=== PATIENT | female | born 1950 | race Caucasian/White ===

== ENCOUNTER → 2017-07-19 | Outpatient (CLI) | payer OTHER ==
[~2017-07-19] MED LIST: BUPIVACAINE MPF 0.25% 10 ML VIAL. ONE; LIDOCAINE 1% PF 30 ML VIAL. ONE; methylPREDNISolone ACETATE 40 MG/ML VIAL. ONE
== END | disposition home or self-care (01) ==
LOC: SURG 12:01
PROVIDERS: ATTEND Anesthesiology Pain Medicine
DX: M53.3 Sacrococcygeal disorders, not elsewhere classified (principal); M19.91 Primary osteoarthritis, unspecified site; Z72.0 Tobacco use
CPT/HCPCS: 20552; J1030; J2001; J3490

== ENCOUNTER → 2017-09-06 | Outpatient (CLI) | payer OTHER ==
[~2017-09-06] MED LIST changes: +IV NORMAL SALINE 500ML 500 ML ONE; +LIDOCAINE 2% PF Vial for OR 5 ML VIAL. ONE; +MIDAZOLAM HCL PF 2 MG/2 ML VIAL. ONE; +PROPOFOL 0 ML IV ONE; +fentaNYL PF 250 MCG/5 ML VIAL ONE
== END | disposition home or self-care (01) ==
LOC: SURG 11:41
PROVIDERS: ATTEND Anesthesiology Pain Medicine
DX: M47.816 Spondylosis without myelopathy or radiculopathy, lumbar region (principal); M19.91 Primary osteoarthritis, unspecified site; Z87.01 Personal history of pneumonia (recurrent); Z72.0 Tobacco use; Z96.643 Presence of artificial hip joint, bilateral
CPT/HCPCS: 64635; 64636; J1030; J2001; J2250; J3010; J3490; J7040; J2704

== ENCOUNTER → 2017-09-20 | Outpatient (CLI) | payer OTHER ==
[~2017-09-20] MED LIST changes: +IV NORMAL SALINE 1,000ML 1,000 ML ONE; -IV NORMAL SALINE 500ML 500 ML ONE; -LIDOCAINE 2% PF Vial for OR 5 ML VIAL. ONE; -PROPOFOL 0 ML IV ONE; -fentaNYL PF 250 MCG/5 ML VIAL ONE
== END | disposition home or self-care (01) ==
LOC: SURG 08:06
PROVIDERS: ATTEND Anesthesiology Pain Medicine
DX: M46.96 Unspecified inflammatory spondylopathy, lumbar region (principal); M47.816 Spondylosis without myelopathy or radiculopathy, lumbar region; F17.210 Nicotine dependence, cigarettes, uncomplicated; M19.90 Unspecified osteoarthritis, unspecified site; J32.9 Chronic sinusitis, unspecified; J30.2 Other seasonal allergic rhinitis
CPT/HCPCS: 64635; 64636; J1030; J2001; J2250; J3010; J3490; J7030

== ENCOUNTER → 2018-01-17 | Outpatient (CLI) | payer OTHER, MEDICARE | END | disposition home or self-care (01) | LOC: SURG 10:00 | PROVIDERS: ATTEND Anesthesiology Pain Medicine | DX: M47.816 Spondylosis without myelopathy or radiculopathy, lumbar region (principal); F11.90 Opioid use, unspecified, uncomplicated; G89.4 Chronic pain syndrome | CPT/HCPCS: 99214 ==

== ENCOUNTER → 2018-02-13 | Outpatient (CLI) | payer OTHER, MEDICARE | END | disposition home or self-care (01) | LOC: SURG 11:02 | PROVIDERS: ATTEND Anesthesiology Pain Medicine | DX: M54.16 Radiculopathy, lumbar region (principal); M47.816 Spondylosis without myelopathy or radiculopathy, lumbar region; K59.03 Drug induced constipation; F11.90 Opioid use, unspecified, uncomplicated | CPT/HCPCS: 99214 ==

== ENCOUNTER → 2018-03-20 | Outpatient (CLI) | payer OTHER, MEDICARE ==
[~2018-03-20] MED LIST changes: +0.9 % SODIUM CHLORIDE 10 ML VIAL ONE; -BUPIVACAINE MPF 0.25% 10 ML VIAL. ONE; +IOHEXOL 300 MG/ML 50 ML VIAL. ONE; -IV NORMAL SALINE 1,000ML 1,000 ML ONE; -MIDAZOLAM HCL PF 2 MG/2 ML VIAL. ONE; -methylPREDNISolone ACETATE 40 MG/ML VIAL. ONE; +methylPREDNISolone ACETATE 80 MG/ML VIAL. ONE
== END ==
LOC: SURG 10:47
PROVIDERS: ATTEND Anesthesiology Pain Medicine
DX: M54.16 Radiculopathy, lumbar region (principal); Z87.39 Personal history of other diseases of the musculoskeletal system and connective tissue; Z87.01 Personal history of pneumonia (recurrent); Z72.0 Tobacco use; Z98.890 Other specified postprocedural states
CPT/HCPCS: 62323; J1040; J2001; Q9967

== ENCOUNTER → 2018-07-04 | Outpatient (CLI) | payer OTHER | END | disposition home or self-care (01) | LOC: SURG 12:20 | PROVIDERS: ATTEND Anesthesiology Pain Medicine | DX: M54.5 Low back pain (principal); J32.9 Chronic sinusitis, unspecified; Z87.891 Personal history of nicotine dependence; Z96.643 Presence of artificial hip joint, bilateral; Z87.39 Personal history of other diseases of the musculoskeletal system and connective tissue | CPT/HCPCS: 99214 ==

== ENCOUNTER → 2018-09-04 | Outpatient (CLI) | payer OTHER | END | disposition home or self-care (01) | LOC: SURG 12:03 | PROVIDERS: ATTEND Anesthesiology Pain Medicine | DX: M47.26 Other spondylosis with radiculopathy, lumbar region (principal); G89.4 Chronic pain syndrome; F11.90 Opioid use, unspecified, uncomplicated; M85.80 Other specified disorders of bone density and structure, unspecified site; J32.9 Chronic sinusitis, unspecified; M19.90 Unspecified osteoarthritis, unspecified site; F17.200 Nicotine dependence, unspecified, uncomplicated; Z79.899 Other long term (current) drug therapy | CPT/HCPCS: 99214 ==

== ENCOUNTER → 2018-10-23 | Outpatient (CLI) | payer OTHER | END | disposition home or self-care (01) | LOC: SURG 10:29 | PROVIDERS: ATTEND Anesthesiology Pain Medicine | DX: M47.26 Other spondylosis with radiculopathy, lumbar region (principal); M19.90 Unspecified osteoarthritis, unspecified site; G89.4 Chronic pain syndrome; F11.90 Opioid use, unspecified, uncomplicated | CPT/HCPCS: 99214 ==

== ENCOUNTER → 2019-01-30 | Outpatient (CLI) | payer MEDICARE, OTHER ==
[~2019-01-30] MED LIST changes: -0.9 % SODIUM CHLORIDE 10 ML VIAL ONE; +BUPIVACAINE MPF 0.25% 10 ML VIAL. ONE
== END | disposition home or self-care (01) ==
LOC: SURG 09:22
PROVIDERS: ATTEND Anesthesiology Pain Medicine
DX: M46.1 Sacroiliitis, not elsewhere classified (principal); J44.9 Chronic obstructive pulmonary disease, unspecified; G47.30 Sleep apnea, unspecified; M19.90 Unspecified osteoarthritis, unspecified site; Z87.01 Personal history of pneumonia (recurrent); M47.26 Other spondylosis with radiculopathy, lumbar region; Z98.890 Other specified postprocedural states; Z79.899 Other long term (current) drug therapy; F17.210 Nicotine dependence, cigarettes, uncomplicated
CPT/HCPCS: G0260; J1040; J2001; J3490; Q9967; 27096

== ENCOUNTER → 2019-02-12 | Outpatient (CLI) | payer MEDICARE | END | disposition home or self-care (01) | LOC: SURG 11:59 | PROVIDERS: ATTEND Anesthesiology Pain Medicine | DX: M46.1 Sacroiliitis, not elsewhere classified (principal); J44.9 Chronic obstructive pulmonary disease, unspecified; G47.30 Sleep apnea, unspecified; Z87.01 Personal history of pneumonia (recurrent); M19.90 Unspecified osteoarthritis, unspecified site; Z98.890 Other specified postprocedural states; Z79.899 Other long term (current) drug therapy; F17.210 Nicotine dependence, cigarettes, uncomplicated | CPT/HCPCS: G0260; J1040; J2001; J3490; Q9967; 27096 ==

== ENCOUNTER → 2019-03-06 | Outpatient (CLI) | payer MEDICARE | END | disposition home or self-care (01) | LOC: SURG 09:49 | PROVIDERS: ATTEND Anesthesiology Pain Medicine | DX: M43.06 Spondylolysis, lumbar region (principal); M53.3 Sacrococcygeal disorders, not elsewhere classified; G89.4 Chronic pain syndrome; F11.90 Opioid use, unspecified, uncomplicated; F17.200 Nicotine dependence, unspecified, uncomplicated; Z79.899 Other long term (current) drug therapy | CPT/HCPCS: 99214 ==

== ENCOUNTER → 2019-04-03 | Outpatient (CLI) | payer MEDICARE | END | disposition home or self-care (01) | LOC: SURG 11:13 | PROVIDERS: ATTEND Anesthesiology Pain Medicine | DX: M43.06 Spondylolysis, lumbar region (principal); M53.3 Sacrococcygeal disorders, not elsewhere classified; M47.816 Spondylosis without myelopathy or radiculopathy, lumbar region; M19.90 Unspecified osteoarthritis, unspecified site; F11.90 Opioid use, unspecified, uncomplicated; F17.200 Nicotine dependence, unspecified, uncomplicated; G89.4 Chronic pain syndrome; Z79.899 Other long term (current) drug therapy | CPT/HCPCS: 99214 ==

== ENCOUNTER → 2019-05-01 | Outpatient (CLI) | payer MEDICARE ==
[~2019-05-01] MED LIST changes: +0.9 % SODIUM CHLORIDE 10 ML VIAL ONE; -BUPIVACAINE MPF 0.25% 10 ML VIAL. ONE
== END ==
LOC: SURG 11:36
PROVIDERS: ATTEND Anesthesiology Pain Medicine
DX: M54.16 Radiculopathy, lumbar region (principal); Z87.39 Personal history of other diseases of the musculoskeletal system and connective tissue; Z87.891 Personal history of nicotine dependence
CPT/HCPCS: 62323; J1040; J2001; Q9967

== ENCOUNTER → 2019-09-03 | Outpatient (CLI) | payer MEDICARE ==
[~2019-09-03] MED LIST changes: -0.9 % SODIUM CHLORIDE 10 ML VIAL ONE; +ASPI-621 PO; +FOLI0.8T33 PO; +HYDR-2769 PO; -IOHEXOL 300 MG/ML 50 ML VIAL. ONE; +LIDO700A21 TP; -LIDOCAINE 1% PF 30 ML VIAL. ONE; +METH2.5T PO; +POLY17PO5 PO; -methylPREDNISolone ACETATE 80 MG/ML VIAL. ONE
[2019-09-03 12:44] VITALS: BP 119/73
== END | disposition home or self-care (01) ==
LOC: SURG 12:00
PROVIDERS: ATTEND Anesthesiology Pain Medicine
DX: M47.816 Spondylosis without myelopathy or radiculopathy, lumbar region (principal); M79.606 Pain in leg, unspecified; G89.4 Chronic pain syndrome; M19.90 Unspecified osteoarthritis, unspecified site; F17.200 Nicotine dependence, unspecified, uncomplicated; Z79.891 Long term (current) use of opiate analgesic
CPT/HCPCS: 99214

== ENCOUNTER → 2019-10-07 | Outpatient (CLI) | payer MEDICARE ==
[~2019-10-07] MED LIST changes: +MULT-245 PO
[2019-10-07 14:57] VITALS: BP 123/83
== END | disposition home or self-care (01) ==
LOC: SURG 14:33
PROVIDERS: ATTEND Anesthesiology Pain Medicine
DX: M47.816 Spondylosis without myelopathy or radiculopathy, lumbar region (principal); M54.9 Dorsalgia, unspecified; M54.5 Low back pain; M79.606 Pain in leg, unspecified; G89.4 Chronic pain syndrome; M19.90 Unspecified osteoarthritis, unspecified site; Z79.891 Long term (current) use of opiate analgesic
CPT/HCPCS: 99214

== ENCOUNTER → 2019-10-14 | Day surgery (SDC) | payer MEDICARE ==
[~2019-10-14] MED LIST changes: +BUPIVACAINE MPF 0.25% 10 ML VIAL. ONE; +DEXAMETHASONE SOD PHOS 4 MG/ML VIAL ONE; +EPINEPHrine SYRINGE 1 MG/10 ML SYRINGE ONE; +FLUMAZENIL 0.5 MG/5 ML VIAL. IV ONE; +GLUCAGON,HUMAN RECOMBINANT 1 MG KIT. ONE; +IV RINGERS SOLUTION,LACTATED 1,000 ML IV SCH; +LIDOCAINE 1% PF 30 ML VIAL. ONE; +MIDAZOLAM HCL PF 2 MG/2 ML VIAL. IV ONE; +MIDAZOLAM HCL PF 2 MG/2 ML VIAL. ONE; +NALOXONE 0.4 MG/ML VIAL. ONE; +diphenhydrAMINE 50 MG/ML VIAL ONE
[2019-10-14 10:04] VITALS: BP 105/73
== END ==
LOC: SURG 07:37
PROVIDERS: ATTEND Anesthesiology Pain Medicine
DX: M47.816 Spondylosis without myelopathy or radiculopathy, lumbar region (principal)
CPT/HCPCS: 64635; 64636; J1100; J2001; J2250; J3010; J3490; J7120; 99153

== ENCOUNTER → 2020-05-11 | Outpatient (CLI) | payer MEDICARE ==
[~2020-05-11] MED LIST changes: -DEXAMETHASONE SOD PHOS 4 MG/ML VIAL ONE; -EPINEPHrine SYRINGE 1 MG/10 ML SYRINGE ONE; -FLUMAZENIL 0.5 MG/5 ML VIAL. IV ONE; -GLUCAGON,HUMAN RECOMBINANT 1 MG KIT. ONE; -IV RINGERS SOLUTION,LACTATED 1,000 ML IV SCH; -MIDAZOLAM HCL PF 2 MG/2 ML VIAL. IV ONE; -MIDAZOLAM HCL PF 2 MG/2 ML VIAL. ONE; -NALOXONE 0.4 MG/ML VIAL. ONE; -diphenhydrAMINE 50 MG/ML VIAL ONE; +methylPREDNISolone ACETATE 40 MG/ML VIAL. ONE
[2020-05-11 13:16] VITALS: BP 133/71
== END | disposition home or self-care (01) ==
LOC: SURG 11:33
PROVIDERS: ATTEND Anesthesiology
DX: M46.1 Sacroiliitis, not elsewhere classified (principal); M47.816 Spondylosis without myelopathy or radiculopathy, lumbar region; J44.9 Chronic obstructive pulmonary disease, unspecified; M19.90 Unspecified osteoarthritis, unspecified site; F17.210 Nicotine dependence, cigarettes, uncomplicated; Z79.899 Other long term (current) drug therapy; Z87.01 Personal history of pneumonia (recurrent); Z98.890 Other specified postprocedural states
CPT/HCPCS: G0260; J1030; J2001; J3490; 27096; 77002

== ENCOUNTER → 2020-06-29 | Outpatient (CLI) | payer MEDICARE ==
[~2020-06-29] MED LIST changes: +0.9 % SODIUM CHLORIDE 10 ML VIAL. ONE; +SENN8.8S5 PO; -methylPREDNISolone ACETATE 40 MG/ML VIAL. ONE
[2020-06-29 12:30] VITALS: BP 138/75
== END | disposition home or self-care (01) ==
LOC: SURG 11:06
PROVIDERS: ATTEND Anesthesiology
DX: M47.896 Other spondylosis, lumbar region (principal); J44.9 Chronic obstructive pulmonary disease, unspecified; Z87.891 Personal history of nicotine dependence; Z79.899 Other long term (current) drug therapy
CPT/HCPCS: 64493; 64494; 64495; J2001; J3490

== ENCOUNTER → 2020-07-06 | Outpatient (CLI) | payer MEDICARE ==
[~2020-07-06] MED LIST changes: -0.9 % SODIUM CHLORIDE 10 ML VIAL. ONE; -BUPIVACAINE MPF 0.25% 10 ML VIAL. ONE; -LIDOCAINE 1% PF 30 ML VIAL. ONE
[2020-07-06 11:21] VITALS: BP 128/65
== END ==
LOC: SURG 11:02
PROVIDERS: ATTEND Anesthesiology
DX: M47.816 Spondylosis without myelopathy or radiculopathy, lumbar region (principal); G89.4 Chronic pain syndrome; F11.20 Opioid dependence, uncomplicated
CPT/HCPCS: 99214; G0463

== ENCOUNTER → 2020-07-27 | Outpatient (CLI) | payer MEDICARE ==
[~2020-07-27] MED LIST changes: +BUPIVACAINE MPF 0.25% 10 ML VIAL. ONE; +LIDOCAINE 1% PF 30 ML VIAL. ONE
[2020-07-27 13:29] VITALS: BP 126/90
== END | disposition home or self-care (01) ==
LOC: SURG 11:55
PROVIDERS: ATTEND Anesthesiology
DX: M47.816 Spondylosis without myelopathy or radiculopathy, lumbar region (principal); J44.9 Chronic obstructive pulmonary disease, unspecified; Z87.891 Personal history of nicotine dependence; Z79.899 Other long term (current) drug therapy
CPT/HCPCS: 64493; 64494; J2001; J3490

== ENCOUNTER → 2020-08-17 | Outpatient (CLI) | payer MEDICARE ==
[~2020-08-17] MED LIST changes: -BUPIVACAINE MPF 0.25% 10 ML VIAL. ONE; -LIDOCAINE 1% PF 30 ML VIAL. ONE
[2020-08-17 12:46] VITALS: BP 130/76
== END ==
LOC: SURG 12:35
PROVIDERS: ATTEND Anesthesiology
DX: M54.5 Low back pain (principal); M47.816 Spondylosis without myelopathy or radiculopathy, lumbar region; M19.90 Unspecified osteoarthritis, unspecified site; F17.210 Nicotine dependence, cigarettes, uncomplicated; F11.20 Opioid dependence, uncomplicated; Z87.01 Personal history of pneumonia (recurrent); G89.4 Chronic pain syndrome; Z79.899 Other long term (current) drug therapy; Z79.82 Long term (current) use of aspirin
CPT/HCPCS: 99214; G0463

== ENCOUNTER → 2020-09-09 | Outpatient (CLI) | payer MEDICARE ==
[2020-08-17 12:46] VITALS: BP 130/76
== END ==
LOC: LAB 14:00
PROVIDERS: ATTEND Nurse Anesthetist, Certified Registered
DX: Z01.812 Encounter for preprocedural laboratory examination (principal); Z20.828 Contact with and (suspected) exposure to other viral communicable diseases
CPT/HCPCS: C9803; U0003

== ENCOUNTER → 2020-09-14 | Day surgery (SDC) | payer MEDICARE ==
[~2020-09-14] MED LIST changes: +BUPIVACAINE MPF 0.25% 10 ML VIAL. ONE; +BUPIVACAINE MPF 0.25% 30 ML VIAL. IJ ONE; +DEXAMETHASONE SOD PHOS 4 MG/ML VIAL. IVP ONE; +DEXAMETHASONE SOD PHOS 4 MG/ML VIAL. ONE; +LIDOCAINE 1% PF 30 ML VIAL. INJ ONE; +LIDOCAINE 1% PF 30 ML VIAL. ONE
[2020-09-14 10:14] VITALS: BP 115/64
== END | disposition home or self-care (01) ==
LOC: SURG 08:37
PROVIDERS: ATTEND Anesthesiology
DX: M47.816 Spondylosis without myelopathy or radiculopathy, lumbar region (principal); G47.30 Sleep apnea, unspecified; J44.9 Chronic obstructive pulmonary disease, unspecified; F17.210 Nicotine dependence, cigarettes, uncomplicated; M19.90 Unspecified osteoarthritis, unspecified site; Z87.01 Personal history of pneumonia (recurrent); Z79.899 Other long term (current) drug therapy; Z79.82 Long term (current) use of aspirin; Z98.890 Other specified postprocedural states; Z79.891 Long term (current) use of opiate analgesic; Z96.643 Presence of artificial hip joint, bilateral; Z87.39 Personal history of other diseases of the musculoskeletal system and connective tissue
CPT/HCPCS: 64635; 64636; 99152; 99153; J1100; J2001; J3010; J3490

== ENCOUNTER 2021-03-06 11:28 | Observation (INO) | payer MEDICARE ==
[~2021-03-06] VITALS: Ht 152.4 cm; Wt 83.0 kg
[~2021-03-06 11:28] MED LIST changes: -BUPIVACAINE MPF 0.25% 10 ML VIAL. ONE; -BUPIVACAINE MPF 0.25% 30 ML VIAL. IJ ONE; -DEXAMETHASONE SOD PHOS 4 MG/ML VIAL. IVP ONE; -DEXAMETHASONE SOD PHOS 4 MG/ML VIAL. ONE; -LIDOCAINE 1% PF 30 ML VIAL. INJ ONE; -LIDOCAINE 1% PF 30 ML VIAL. ONE; +SENN8.8S13 PO; -SENN8.8S5 PO
[2021-03-06] MEDS ORDERED: IPRATRPIUM/ALBUTEROL 0.5/2.5MG 3 ML NEBU. NEB ONE (11:45)
--- NOTE | 2021-03-06 11:56 | PHYS DOC ---
General Adult EDM: Chief Complaint: Chest pain HPI: HPI: 70-year-old female presents by private vehicle with chest pain and shortness of breath. The patient states that she started having chest pain yesterday. It is worse today. She does describes it as a gorilla sitting on her chest. The patient has had a lot of medical problems in the last couple of years. She has had pneumonia twice, radiation treatment for spots on her lung, and is supposed to see a rn licensed practical for some reason. The patient does admit that she was doing more physical activity than usual the day before yesterday. She was using her arms a lot. Patient further states that she gets out of breath very easily lately. She is on home oxygen. History of COPD but does not always take her COPD medications. She denies fever or chills. Review of Systems: Review of Systems: Constitutional: Denies fever or chills Eyes: Denies change in visual acuity HENT: Denies nasal congestion or sore throat Respiratory: shortness of breath Cardiovascular: Chest pain GI: Denies abdominal pain, nausea, vomiting, bloody stools or diarrhea : Denies dysuria Musculoskeletal: Denies back pain or joint pain Integument: Denies rash Neurologic: Denies headache, focal weakness or sensory changes Endocrine: Denies polyuria or polydipsia Lymphatic: Denies swollen glands Psychiatric: Denies depression or anxiety Current Medications: Current Meds: Current Medications Medications (Trade) Dose Ordered Sig/Talat Start Time Stop Time Status Last Admin Dose Admin Albuterol/ Ipratropium (Duoneb) 3 ml 1X ONCE 03/06/21 11:45 03/06/21 11:46 UNV Allergies: Allergies: Allergies Coded Allergies Type Severity Reaction Last Updated Verified No Known Drug Allergies 07/06/20 No Physical Exam: PE: Constitutional: Well developed, well nourished, morbidly obese, moderate acute distress, non-toxic appearance. [] HENT: Normocephalic, atraumatic, bilateral external ears normal, oropharynx moist, no oral exudates, nose normal. [] Eyes: PERRLA, EOMI, conjunctiva normal, no discharge. [] Neck: Normal range of motion, no tenderness, supple, no stridor. [] Cardiovascular: Heart rate 116, regular rhythm, no murmur [] Lungs & Thorax: Bilateral breath sounds diminished with expiratory wheezing [] Abdomen: Bowel sounds normal, soft, no tenderness, no masses, no pulsatile nadege s. [] Skin: Warm, dry, no erythema, no rash. [] Back: No tenderness, no CVA tenderness. [] Extremities: No tenderness, no cyanosis, no clubbing, ROM intact, no edema. [] Neurologic: Alert and oriented X 3, normal motor function, normal sensory function, no focal deficits noted. [] Psychologic: Affect normal, judgement normal, mood normal. [] EKG: EKG: Sinus tachycardia, rate 116, normal axis, no ST elevations or depressions, PVC. [] Radiology/Procedures: Radiology/Procedures: [] Impressions: Single AP view of the chest. Comparison: None. Indication: Chest pain Findings: The heart is enlarged. No pneumothorax. There may be some soft tissue opacity overlying the right lung base versus possible airspace disease. Impression: 1. Airspace disease versus overlying soft tissue density in the right lung base. Consider lateral examination for further evaluation. Electronically signed by: Noé Milner MD (03/06/2021 12:30 PM) [id number] DICTATED AND SIGNED BY: NOÉ MILNER MD DATE: 03/06/21 1221 CC: RUTH TADEO DO; GIACOMO JAIN MD ~MTH0 0 Heart Score: C/O Chest Pain: Yes HEART Score for Chest Pain: HEART Score for Chest Pain Response (Comments) Value History Moderately Suspicious 1 ECG Nonspecific Repolarizatio 1 Age > 65 2 Risk Factors 1 or 2 Risk Factors 1 Troponin < Normal Limit 0 Total 5 Risk Factors: Risk Factors: DM, Current or recent (<one month) smoker, HTN, HLP, family history of CAD, obesity. Risk Scores: Score 0 - 3: 2.5% MACE over next 6 weeks - Discharge Home Score 4 - 6: 20.3% MACE over next 6 weeks - Admit for Clinical Observation Score 7 - 10: 72.7% MACE over next 6 weeks - Early Invasive Strategies Course & Med Decision Making: Course & Med Decision Making Pertinent Labs and Imaging studies reviewed. (See chart for details) On arrival the patient's oxygen was in the low to mid 80s. After she sat down and we placed her on 4 L nasal cannula, she improved significantly. We were able to turn her down to 2 L by nasal cannula and she is satting 92% or better. When she talks or increases her activity level at all, she needs 3-4L of O2. Based on my exam, I believe she is having a COPD exacerbation. I have ordered 125 of Solu-Medrol. We also gave her a DuoNeb treatment. Her labs are unremarkable. Her troponin is negative. Her heart score is a 5. I would not expect the type of pain that she describes just from COPD exacerbation. This could be musculoskeletal as she surmises. I will admit her to the hospital for COPD exacerbation and chest pain rule out. I spoke with Dr. Bernard and he has accepted the patient for admission. 36 minutes of critical care time was spent on this patient exclusive of other billable procedures. [] Dragon Disclaimer: Dragon Disclaimer: This electronic medical record was generated, in whole or in part, using a voice recognition dictation system. Departure Departure: Impression: Primary Impression: COPD exacerbation Additional Impressions: Chest pain Qualified Codes: R07.9 - Chest pain, unspecified Lung cancer Disposition: ADMITTED INPATIENT Admitting Physician: Hudson Bernard Condition: GUARDED Referrals: GIACOMO JAIN MD (PCP) RUTH TADEO DO March 06, 2021 11:56
[2021-03-06 12:16] LABS: BASO % 0 % (0-3); EOS # 0.2 x10^3/uL (0.0-0.7); EOS % 1 % (0-3); HEMATOCRIT 43.2 % (36.0-47.0); HEMOGLOBIN 14.7 g/dL (12.0-15.5); LYMPH % 28 % (24-48); MEAN CORPUSCULAR HEMOGLOBIN 34 pg (25-35); MEAN CORPUSCULAR HGB CONC 34 g/dL (31-37); MEAN CORPUSCULAR VOLUME 101 fL (79-100); MONO # 0.6 x10^3/uL (0.0-1.1); MONO % 6 % (0-9); NEUT # 7.1 x10^3uL (1.8-7.7); NEUT % 65 % (31-73); PLATELET COUNT 226 x10^3/uL (140-400); RED BLOOD COUNT 4.28 x10^6/uL (3.50-5.40); RED CELL DISTRIBUTION WIDTH 13.9 % (11.5-14.5); WHITE BLOOD COUNT 10.9 x10^3/uL (4.0-11.0)
[2021-03-06 12:30] LABS: CREATININE 0.6 mg/dL (0.6-1.0); GFR 99.1; POTASSIUM 4.2 mmol/L (3.5-5.1)
--- NOTE | 2021-03-06 12:33 | RAD ---
Single AP view of the chest. Comparison: None. Indication: Chest pain Findings: The heart is enlarged. No pneumothorax. There may be some soft tissue opacity overlying the right regine g base versus possible airspace disease. Impression: 1. Airspace disease versus overlying soft tissue density in the right lung base. Consider lateral exa mination for further evaluation. Electronically signed by: Noé Milner MD (03/06/2021 12:30 PM) [id number]
[2021-03-06 12:44] LABS: ALBUMIN 3.8 g/dL (3.4-5.0); TOTAL BILIRUBIN 0.3 mg/dL (0.2-1.0); TOTAL PROTEIN 7.6 g/dL (6.4-8.2)
[2021-03-06] MEDS ORDERED: methylPREDNISolone SOD SUCC PF 125 MG/2 ML VIAL. IV ONE (13:00)
--- NOTE | 2021-03-06 13:01 | EKG ---
[address] [address] Test Date: 2021-03-06 Test Time: 11:44:08 Pat Name: ROZINA MANRIQUEZ Department: Room: Gender: F Commercial Attache: : 1950 Requested By: RUTH TADEO Order Number: [id number] Reading MD: Measurements Intervals [place] Rate: 116 P: 48 MA: 132 QRS: 3 QRSD: 90 T: 63 QT: 334 QTc: 470 Interpretive Statements SINUS TACHYCARDIA VENTRICULAR PREMATURE COMPLEX(ES) R-S TRANSITION ZONE IN V LEADS DISPLACED TO THE LEFT LOW LIMB LEAD VOLTAGE ABNORMAL ECG RI6.02 No previous ECG available for comparison
[2021-03-06] MEDS ORDERED: ONDANSETRON PF 4 MG/2 ML VIAL. IVP PRN (13:45)
[2021-03-06] MEDS ORDERED: MORPHINE SULFATE 4 MG/ML DISP.SYRIN. IV ONE (14:00)
--- NOTE | 2021-03-06 15:20 | HP ---
ADMIT DATE: 03/06/2021 ATTENDING PHYSICIAN: Dr. Bernard. CHIEF COMPLAINT: Shortness of breath. HISTORY OF PRESENT ILLNESS: The patient is a 70-year-old female admitted to the ED with increasing shortness of breath. She started having chest pressure, worse today. It feels like a pressure if somebody is sitting on her chest. She also has been constipated with excessive bloating. The increased abdominal girth is pushed up under diaphragm. She is not able to get a deep breath. She has had a longstanding history of COPD. She also has a history of lung cancer. It appears to be non-small cell cancer. She has had radiation therapy to the right base. She had a recent PET scan done a week ago. She was in the process of following up with her radiation oncologist. It appears there is recurrent disease in the right lung field from the preliminary report. There is no obvious pneumonia, no fever. She has marginal saturations. She is admitted then with an exacerbation of COPD with acute on chronic respiratory failure. PAST MEDICAL HISTORY: Significant for COPD, obesity and degenerative arthritis. She has had cardiac issues with previous catheter ablation for irregular heartbeat. I do not have any further details. She also has degenerative arthritis. CURRENT MEDICATIONS: Include albuterol and senna. She has frequent constipation. FAMILY HISTORY: Noncontributory. REVIEW OF SYSTEMS: Significant for the dyspnea with a minimal exertion. She is tired all the time. Dry nonproductive cough. Chronic constipation. No recent COVID exposure. All other systems reviewed and turned to be negative. PHYSICAL EXAMINATION: GENERAL: When I saw her, this is a pleasant elderly female who was alert and oriented. VITAL SIGNS: Her initial vital signs showed a blood pressure of 121/91, pulse was 107 and regular. She was afebrile, oxygen saturation 93% on 2 liters by nasal cannula. HEENT: Head is without trauma. Pupils are reactive. Sclerae nonicteric. Oropharynx is clear. NECK: Supple. LUNGS: Diffuse wheezing bilaterally. CARDIOVASCULAR: Showed regular heart tones. ABDOMEN: Obese, protuberant, tympanitic. There are hypoactive bowel sounds. EXTREMITIES: Show trace edema. Neurologic finding focally intact. Speech is fluent. SKIN: Warm and dry. PERTINENT LABORATORY STUDY: Chest x-ray demonstrated chronic scarring infiltrate in the right lateral base. Her hemoglobin was 14.7 g/dL, white count 10,900. Electrolytes, BUN and creatinine all within normal range. Cardiac enzymes negative for coronary ischemia. ASSESSMENT: 1. A 70-year-old female with acute on chronic respiratory failure. 2. History of lung cancer with previous radiation therapy to right lower lobe lesion. Her therapy treatment was done a year ago. 3. Recent PET scan showing a possible recurrence of disease. 4. Obesity. 5. Chronic constipation. 6. Degenerative arthritis. PLAN: 1. Admit to the inpatient unit. 2. Steroid therapy in the form of Solu-Medrol briefly. 3. Nebulizer therapy. 4. Magnesium citrate to help evacuate her bowels, which will lessen the pressure on the diaphragm, allowing her lungs more space to expand. 5. Home medications continued: 6. Regarding recurrent disease on PET scan, she will follow up with her radiation oncologist. JOEL/LUCAS DR: Sumi TID: [id number] CC: GIACOMO JAIN MD
[2021-03-06] MEDS: IPRATRPIUM/ALBUTEROL 0.5/2.5MG 3 ML NEBU. NEB SCH ×2 (16:00→20:36)
[2021-03-06] MEDS ORDERED: HYDR25CA PO (17:40)
[2021-03-06] MEDS ORDERED: CHOL10004 PO (17:40)
[2021-03-06] MEDS ORDERED: MAGN250T10 PO (17:40)
[2021-03-06 19:52] VITALS: BP 129/72
[2021-03-06] MEDS ORDERED: MAGNESIUM CITRATE 296 ML SOLUTION. PO ONE (21:00)
[2021-03-06] MEDS ORDERED: ALBUTEROL SULFATE 2.5 MG/3 ML NEBU. NEB PRN (21:00)
[2021-03-06] MEDS: methylPREDNISolone SOD SUCC PF 125 MG/2 ML VIAL. IV SCH (21:13)
[2021-03-06] MEDS: HYDROcodone/APAP 10/325 1 TAB TABLET PO PRN (21:14)
[2021-03-07 00:57] VITALS: BP 99/64
[2021-03-07] MEDS: HYDROcodone/APAP 10/325 1 TAB TABLET PO PRN ×4 (01:00→22:31)
[2021-03-07] MEDS: IPRATRPIUM/ALBUTEROL 0.5/2.5MG 3 ML NEBU. NEB SCH ×2 (05:29→09:31)
[2021-03-07] MEDS: methylPREDNISolone SOD SUCC PF 125 MG/2 ML VIAL. IV SCH ×3 (05:50→22:31)
[2021-03-07 06:02] VITALS: BP 98/59
[2021-03-07 10:56] VITALS: BP 96/56
[2021-03-07] MEDS ORDERED: MAGNESIUM CITRATE 296 ML SOLUTION. PO ONE (14:15)
[2021-03-07 15:30] VITALS: BP 122/76
[2021-03-07] MEDS ORDERED: SENN1TAB99 PO (16:55)
[2021-03-07] MEDS ORDERED: SENN8.8S13 PO (16:55)
[2021-03-07] MEDS ORDERED: SENN8.6T11 PO (17:18)
[2021-03-07 19:27] VITALS: BP 115/73
--- NOTE | 2021-03-07 22:50 | PN ---
DATE: 03/07/2021 ATTENDING PHYSICIAN: Dr. Bernard SUBJECTIVE: Very anxious, still short of breath with minimal exertion. No cough. OBJECTIVE FINDINGS: VITAL SIGNS: Blood pressure this morning is 98/59, pulse is 89 and regular. She is afebrile. Oxygen saturation 93% on 4 liters. HEENT: Head is without trauma. Pupils are reactive. Sclerae nonicteric. Oropharynx clear. NECK: No stridor. LUNGS: Minimal wheezing, but not as pronounced. She is moving air well. HEART: Regular heart tones. No gallop. ABDOMEN: Obese, protuberant, increased tympany and gaseous distention. EXTREMITIES: Without edema. NEUROLOGIC FINDING: Focally intact. Very anxious. ASSESSMENT: 1. A 70-year-old female with acute on chronic respiratory failure. 2. Exacerbation of chronic obstructive pulmonary disease. 3. Narcotic ileus. 4. Chronic low back pain. 5. History of lung cancer with radiation therapy. 6. Probable recurrence. 7. Significant anxiety and depression. PLAN: 1. Continue steroids as ordered. 2. Nebulizer therapy. 3. I offered a laxative in the form of magnesium citrate. She declined. 4. Continue pain meds as scheduled. 5. Discharge planning for tomorrow. JOEL/DASHA DR: JOEL/anna TID: [id number]
[2021-03-07 23:05] VITALS: BP 131/69
[2021-03-08] MEDS: methylPREDNISolone SOD SUCC PF 125 MG/2 ML VIAL. IV SCH ×3 (06:32→14:00)
[2021-03-08 07:38] VITALS: BP 130/77
[2021-03-08] MEDS: HYDROcodone/APAP 10/325 1 TAB TABLET PO PRN (07:48)
[2021-03-08 11:23] VITALS: BP 134/78
[2021-03-08] MEDS ORDERED: SIMETHICONE 80 MG TAB.CHEW PO PRN (12:30)
[2021-03-08] MEDS ORDERED: HYDROcodone/APAP 10/325 1 TAB TABLET PO PRN (14:30)
[2021-03-08 14:48] VITALS: BP 149/82
[2021-03-08] MEDS ORDERED: ASA/APAP/CAFFEINE 250/250/65MG TABLET. PO SCH (18:00)
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
[2021-03-08] MEDS ORDERED: SENNOSIDES/DOCUSATE 8.6/50MG TABLET. PO SCH (21:00)
[2021-03-08] MEDS ORDERED: hydrOXYzine PAMOATE 25 MG CAPSULE PO SCH (21:00)
[2021-03-09] MEDS ORDERED: SENNOSIDES 8.6 MG TABLET PO SCH (08:00)
[2021-03-09] MEDS ORDERED: MULTIVITAMIN with MINERAL TABLET. PO SCH (09:00)
[2021-03-09] MEDS ORDERED: MAGNESIUM OXIDE 400 MG TABLET PO SCH (09:00)
[2021-03-09] MEDS ORDERED: CHOLECALCIFEROL (VITAMIN D3) 1,000 UNIT TABLET PO SCH (09:00)
== END 2021-03-08 16:46 | disposition still patient (30) ==
LOC: ER 11:28 → INTOOBSV 13:34 → 1 SOUTH 13:34
PROVIDERS: ADMIT Hospitalist; ATTEND Hospitalist
DX: J96.20 Acute and chronic respiratory failure, unspecified whether with hypoxia or hypercapnia (principal); M19.90 Unspecified osteoarthritis, unspecified site; T40.2X5A Adverse effect of other opioids, initial encounter; K59.00 Constipation, unspecified; E66.9 Obesity, unspecified; J44.1 Chronic obstructive pulmonary disease with (acute) exacerbation; F41.9 Anxiety disorder, unspecified; F32.9 Major depressive disorder, single episode, unspecified; R07.89 Other chest pain; C34.90 Malignant neoplasm of unspecified part of unspecified bronchus or lung; G89.29 Other chronic pain; K59.03 Drug induced constipation; K56.7 Ileus, unspecified; Z85.118 Personal history of other malignant neoplasm of bronchus and lung; Z92.3 Personal history of irradiation; Z68.35 Body mass index [BMI] 35.0-35.9, adult
CPT/HCPCS: 36415; 71045; 80053; 83605; 83880; 84484; 85025; 87040; 93005; 94640; 94760; 96374; 96375; 96376; 99291; G0378; J2270; J2930; G0379

== ENCOUNTER → 2021-06-01 | Outpatient (CLI) | payer MEDICARE ==
[~2021-06-01] MED LIST changes: +CHOL10004 PO; +HYDR25CA PO; +MAGN250T10 PO; +SENN1TAB99 PO; +SENN8.6T11 PO
--- NOTE | 2021-06-01 16:54 | RAD ---
Chest, PA and Lateral: Technique: PA and lateral views of the chest were obtained. History: psoriasis medication follow-up. Comparison: 03/06/2021. Findings: The heart and pulmonary vasculature appear within normal limits. Mild bibasilar lung atelectasis or infiltrates.. The pleural margins are clear. Moderate degenerative changes thoracic spine. Impression: Mild bibasilar lung atelectasis or infiltrates. Electronically signed by: Javier Dorman MD (06/01/2021 4:51 PM) [id number]
== END ==
LOC: LAB 14:45
PROVIDERS: ATTEND Physician Assistant
DX: L40.9 Psoriasis, unspecified (principal); M47.814 Spondylosis without myelopathy or radiculopathy, thoracic region
CPT/HCPCS: 71046

== ENCOUNTER → 2021-06-08 | Outpatient (CLI) | payer MEDICARE ==
[2021-06-08 14:13] LABS: BASO % 0 % (0-3); EOS # 0.2 x10^3/uL (0.0-0.7); EOS % 3 % (0-3); HEMATOCRIT 42.2 % (36.0-47.0); HEMOGLOBIN 14.1 g/dL (12.0-15.5); LYMPH # 2.6 x10^3/uL (1.0-4.8); LYMPH % 35 % (24-48); MEAN CORPUSCULAR HEMOGLOBIN 34 pg (25-35); MEAN CORPUSCULAR HGB CONC 34 g/dL (31-37); MEAN CORPUSCULAR VOLUME 102 fL (79-100); MONO # 0.3 x10^3/uL (0.0-1.1); MONO % 4 % (0-9); NEUT # 4.4 x10^3uL (1.8-7.7); NEUT % 59 % (31-73); PLATELET COUNT 201 x10^3/uL (140-400); RED BLOOD COUNT 4.16 x10^6/uL (3.50-5.40); RED CELL DISTRIBUTION WIDTH 14.8 % (11.5-14.5); WHITE BLOOD COUNT 7.5 x10^3/uL (4.0-11.0)
[2021-06-08 14:23] LABS: ALBUMIN 3.5 g/dL (3.4-5.0); CALCIUM 8.9 mg/dL (8.5-10.1); CREATININE 0.5 mg/dL (0.6-1.0); POTASSIUM 4.5 mmol/L (3.5-5.1); TOTAL BILIRUBIN 0.2 mg/dL (0.2-1.0)
== END ==
LOC: LAB 13:01
PROVIDERS: ATTEND Physician Assistant
DX: L40.9 Psoriasis, unspecified (principal)
CPT/HCPCS: 80053; 80061; 85025; 86481; 86705; 86709; 86803; 87340